=== PATIENT | female | born 1990 | race Hispanic/Latino ===

== ENCOUNTER 2017-10-25 01:08 | Emergency (ER) | payer MEDICAID ==
--- NOTE | 2017-10-25 01:35 | ED PDOC ---
Arrival/HPI - General Time Seen by Provider: 10/25/17 01:10 Historian: Patient, EMS, Police - History of Present Illness Narrative History of Present Illness (Text): 10/25/17 01:35 Suyapa Petit is a 27 year old female, whose past medical history includes IVDA and alcohol abuse, who presents to the Emergency department brought in for alcohol abuse. EMS report patient was found sitting on someone's porch tonight intoxicated. On arrival, patient is agitated, yelling, and cursing at staff. Limited HPI and ROS due to uncooperative patient. Symptom Onset: Gradual Symptom Course: Unchanged Activities at Onset: Light Context: Street Past Medical History - Provider Review Nursing Documentation Reviewed: Yes - Infectious Disease Hx of Infectious Diseases: None - Tetanus Immunization Tetanus Immunization: Up to Date - Past Medical History Past Medical History: No Previous - Cardiac Hx Cardiac Disorders: No - Pulmonary Hx Respiratory Disorders: No - Neurological Hx Neurological Disorder: No - HEENT Hx HEENT Disorder: No - Renal Hx Renal Disorder: No - Endocrine/Metabolic Hx Endocrine Disorders: No - Hematological/Oncological Hx Blood Disorders: No - Integumentary Hx Dermatological Disorder: No - Musculoskeletal/Rheumatological Hx Falls: No - Gastrointestinal Hx Gastrointestinal Disorders: No - Genitourinary/Gynecological Hx Genitourinary Disorders: No - Psychiatric Hx Psychophysiologic Disorder: No Hx Anxiety: No Hx Depression: No Hx Emotional Abuse: No Hx Hallucinations: No Hx Panic Disorder: No Hx Post Traumatic Stress Disorder: No Hx Psychosis: No Hx Physical Abuse: No Hx Schizophrenia: No Hx Sexual Abuse: No Hx Substance Use: Yes - Past Surgical History Past Surgical History: No Previous - Anesthesia Hx Anesthesia: No Hx Anesthesia Reactions: No Hx Malignant Hyperthermia: No - Suicidal Assessment Feels Threatened In Home Enviroment: No Family/Social History - Physician Review Nursing Documentation Reviewed: Yes Family/Social History: Unknown Family HX Smoking Status: Heavy Smoker > 10 Cigarettes Daily Hx Alcohol Use: No Hx Substance Use: Yes Substance used: cocaine, herione Hx Substance Use Treatment: No Allergies/Home Meds Allergies/Adverse Reactions: Allergies No Known Allergies Allergy (Verified 10/25/17 01:39) Home Medications: Home Meds Medication Instructions Recorded Confirmed No Known Home Med 07/13/16 10/25/17 Review of Systems - Review of Systems Systems not reviewed;Unavailable: Uncooperative Physical Exam Vital Signs Reviewed: Yes Vital Signs Temp Pulse Resp BP Pulse Ox 10/25/17 12:05 98.1 F 78 17 110/51 L 98 10/25/17 05:34 82 18 105/42 L 94 L 10/25/17 04:16 75 18 105/41 L 95 10/25/17 03:05 80 18 117/61 100 10/25/17 02:00 85 18 156/98 H 100 Temperature: Afebrile Blood Pressure: Normal Pulse: Regular Respiratory Rate: Normal Appearance: Positive for: Well-Appearing, Non-Toxic, Comfortable Pain Distress: None Mental Status: Positive for: Agitated - Systems Exam Head: Present: Atraumatic, Normocephalic Pupils: Present: PERRL Extroacular Muscles: Present: EOMI Conjunctiva: Present: Normal Mouth: Present: Moist Mucous Membranes Neck: Present: Normal Range of Motion Respiratory/Chest: Present: Clear to Auscultation, Good Air Exchange. No: Respiratory Distress, Accessory Muscle Use Cardiovascular: Present: Regular Rate and Rhythm, Normal S1, S2. No: Murmurs Abdomen: No: Tenderness, Distention, Peritoneal Signs Back: Present: Normal Inspection Upper Extremity: Present: Normal Inspection. No: Cyanosis, Edema Lower Extremity: Present: Normal Inspection. No: Edema Neurological: Present: GCS=15, CN II-XII Intact, Speech Normal Skin: Present: Warm, Dry, Normal Color. No: Rashes Psychiatric: Present: Agitated (Agitated, yelling obscenities at staff) Medical Decision Making ED Course and Treatment: 10/25/17 01:35 Impression: 27 year old female brought in for alcohol intoxication. Plan: -- Labs, alcohol level -- Urinalysis, urine drug screen -- Reassess and disposition Prior Visits: Notes and results from previous visits were reviewed. Progress Notes: Pt on arrival to Emergency department is agitated, screaming, yelling obscenities/cursing at staff. Attempted to verbally de-escalate pt. Will sedate patient's own safety. 10/25/17 05:35 pt sleeping innad s/p sedation. - Lab Interpretations Lab Results: 10/25/17 02:27 10/25/17 02:27 Lab Results 10/25/17 02:27: Alcohol, Quantitative 213 H 10/25/17 02:27: Salicylates < 1 L, Acetaminophen < 10.0 L 10/25/17 02:27: Sodium 145, Potassium 3.9, Chloride 108 H, Carbon Dioxide 22, Anion Gap 19, BUN 9, Creatinine 0.7, Est GFR ( Amer) > 60, Est GFR (Non- Af Amer) > 60, Random Glucose 110, Calcium 9.6, Total Bilirubin < 0.1 L, AST 80 H, ALT 115 H, Alkaline Phosphatase 74, Total Protein 8.6 H, Albumin 4.5, Globulin 4.1, Albumin/Globulin Ratio 1.1 10/25/17 02:27: WBC 10.0 D, RBC 4.50, Hgb 12.6, Hct 37.1, MCV 82.4, MCH 28.0, MCHC 34.0, RDW 13.1, Plt Count 277, MPV 9.9, Gran % 43.6 L, Lymph % (Auto) 53.0 H, [place] % (Auto) 3.2, Eos % (Auto) 0.1 L, Baso % (Auto) 0.1, Gran # 4.36, Lymph # (Auto) 5.3 H, [place] # (Auto) 0.3, Eos # (Auto) 0.0, Baso # (Auto) 0.01 - Medication Orders Current Medication Orders: Discontinued Medications Lorazepam (Ativan) 2 mg IM ONCE ONE PRN Reason: Protocol Stop: 10/25/17 01:38 Last Admin: 10/25/17 01:37 Dose: 2 mg IM Administration Charges Document 10/25/17 01:37 AD (Rec: 10/25/17 01:46 AD [id number]) Injection Site MAR Injection Site Left Deltoid Charges for Administration # of IM Administrations 1 Ziprasidone (Geodon Inj) 20 mg IM STAT STA PRN Reason: Protocol Stop: 10/25/17 01:38 Last Admin: 10/25/17 01:37 Dose: 20 mg IM Administration Charges Document 10/25/17 01:37 AD (Rec: 10/25/17 01:46 AD [id number]) Injection Site MAR Injection Site Right Deltoid Charges for Administration # of IM Administrations 1 - Scribe Statement The provider has reviewed the documentation as recorded by the Cyndi Hu Provider Scribe Attestation: All medical record entries made by the Scribe were at my direction and personally dictated by me. I have reviewed the chart and agree that the record accurately reflects my personal performance of the history, physical exam, medical decision making, and the department course for this patient. I have also personally directed, reviewed, and agree with the discharge instructions and disposition. Disposition/Present on Arrival - Present on Arrival Any Indicators Present on Arrival: No History of DVT/PE: No History of Uncontrolled Diabetes: No Urinary Catheter: No History Surgical Site Infection Following: None - Disposition Have Diagnosis and Disposition been Completed?: Yes Diagnosis: Alcohol intoxication Disposition: HOME/ ROUTINE Disposition Time: 07:00 Condition: IMPROVED Discharge Instructions (ExitCare): Alcohol Abuse and Alcoholism (DC) Additional Instructions: Ms Petit, thank you for letting us take care of you today. Your provider was Dr. Slater. You were treated for Alcohol Intoxication. The emergency medical care you received today was directed at your acute symptoms. If you were prescribed any medication, please fill it and take as directed. It may take several days for your symptoms to resolve. Return to the Emergency Department if your symptoms worsen, do not improve, or if you have any other problems. Please contact your doctor or call one of the physicians/clinics you have been referred to that are listed on the Patient Visit Information form that is included in your discharge packet. Bring any paperwork you were given at discharge with you along with any medications you are taking to your follow up visit. Our treatment cannot replace ongoing medical care by a primary care provider (PCP) outside of the emergency department. Thank you for allowing the [facility] team to be part of your care today. If you had an X-Ray or CT scan: A Radiologist will review the ED reading if any change in treatment is needed we will contact you. If you had a blood, urine, or wound culture: It will take several days for the results, if any change in treatment is needed we will contact you. If you had an STI test: It will take 48 hours for the results. Please call after 1 week if you have not heard back. Referrals: [facility] at [facility] [place] - Follow up with primary Forms: [employer] (Mauritanian), WORK NOTE
[2017-10-25 01:38] VITALS: BMI 25.7
[2017-10-25 02:44] LABS: BASO # 0.01 K/mm3 (0.0-2.0); BASO % 0.1 % (0.0-3.0); EOS % 0.1 % (1.5-5.0); GRAN # 4.36 (1.4-6.5); GRAN % 43.6 % (50.0-68.0); HEMOGLOBIN 12.6 g/dL (12.0-16.0); LYMPH # 5.3 (1.2-3.4); MEAN CELL VOLUME 82.4 fl (80.0-105.0); MEAN PLATELET VOLUME 9.9 fl (7.0-11.0); MONO # 0.3 (0.1-0.6); MONO % 3.2 % (1.0-6.0); RBC 4.5 10^6/uL (3.5-6.1); RED CELL DISTRIBUTION WIDTH 13.1 % (11.5-14.5)
[2017-10-25 02:51] LABS: ACETAMINOPHEN < 10.0 ug/ml (10.0-20.0); SALICYLATE < 1 mg/dL (2.0-20.0)
[2017-10-25 02:52] LABS: ALB/GLOB RATIO 1.1 (1.1-1.8); ALBUMIN 4.5 g/dL (3.0-4.8); ALT/SGPT 115 U/L (7-56); AST/SGOT 80 U/L (14-36); BLOOD UREA NITROGEN 9 mg/dL (7-21); CALCIUM 9.6 mg/dL (8.4-10.5); GFR AFRICAN-AMERICAN > 60; GFR NON-AFRICAN AMERICAN > 60
--- NOTE | 2017-10-25 07:27 | ED PDOC ---
Physical Exam Vital Signs Reviewed: Yes Vital Signs Pulse Resp BP Pulse Ox 10/25/17 05:34 82 18 105/42 L 94 L 10/25/17 04:16 75 18 105/41 L 95 10/25/17 03:05 80 18 117/61 100 10/25/17 02:00 85 18 156/98 H 100 Temperature: Afebrile Blood Pressure: Hypertensive Pulse: Regular Respiratory Rate: Normal Appearance: Positive for: Well-Appearing Pain Distress: None Mental Status: Positive for: Alert and Oriented X 3 - Systems Exam Neurological: Present: GCS=15, CN II-XII Intact, Speech Normal (no slurred speech). No: Other (no ataxia) Psychiatric: Present: Alert, Oriented x 3, Normal Insight, Normal Concentration. No: Suicidal Ideation, Homicidal Ideation Medical Decision Making ED Course and Treatment: 10/25/17 07:13 Patient transferred to mi by Dr. Low. Patient awaiting follow-up and pending sobriety. Patient to be reevaluated and dispositioned. 10/25/17 11:39 Patient has reached sobriety. Upon re-examination, patient is alert and oriented x 3, denies any SI/HI, has no slurred speech, no ataxia, denies any drug use. Patient will follow-up with PMD. - Lab Interpretations Lab Results: 10/25/17 02:27 10/25/17 02:27 Lab Results 10/25/17 02:27: Alcohol, Quantitative 213 H 10/25/17 02:27: Salicylates < 1 L, Acetaminophen < 10.0 L 10/25/17 02:27: Sodium 145, Potassium 3.9, Chloride 108 H, Carbon Dioxide 22, Anion Gap 19, BUN 9, Creatinine 0.7, Est GFR ( Amer) > 60, Est GFR (Non- Af Amer) > 60, Random Glucose 110, Calcium 9.6, Total Bilirubin < 0.1 L, AST 80 H, ALT 115 H, Alkaline Phosphatase 74, Total Protein 8.6 H, Albumin 4.5, Globulin 4.1, Albumin/Globulin Ratio 1.1 10/25/17 02:27: WBC 10.0 D, RBC 4.50, Hgb 12.6, Hct 37.1, MCV 82.4, MCH 28.0, MCHC 34.0, RDW 13.1, Plt Count 277, MPV 9.9, Gran % 43.6 L, Lymph % (Auto) 53.0 H, [place] % (Auto) 3.2, Eos % (Auto) 0.1 L, Baso % (Auto) 0.1, Gran # 4.36, Lymph # (Auto) 5.3 H, [place] # (Auto) 0.3, Eos # (Auto) 0.0, Baso # (Auto) 0.01 - Medication Orders Current Medication Orders: Discontinued Medications Lorazepam (Ativan) 2 mg IM ONCE ONE PRN Reason: Protocol Stop: 10/25/17 01:38 Last Admin: 10/25/17 01:37 Dose: 2 mg IM Administration Charges Document 10/25/17 01:37 AD (Rec: 10/25/17 01:46 AD [id number]) Injection Site MAR Injection Site Left Deltoid Charges for Administration # of IM Administrations 1 Ziprasidone (Geodon Inj) 20 mg IM STAT STA PRN Reason: Protocol Stop: 10/25/17 01:38 Last Admin: 10/25/17 01:37 Dose: 20 mg IM Administration Charges Document 10/25/17 01:37 AD (Rec: 10/25/17 01:46 AD [id number]) Injection Site MAR Injection Site Right Deltoid Charges for Administration # of IM Administrations 1 - Scribe Statement The provider has reviewed the documentation as recorded by the Cyndi Pires Provider Scribe Attestation: All medical record entries made by the Scribonelia were at my direction and personally dictated by me. I have reviewed the chart and agree that the record accurately reflects my personal performance of the history, physical exam, medical decision making, and the department course for this patient. I have also personally directed, reviewed, and agree with the discharge instructions and disposition. Disposition/Present on Arrival - Present on Arrival Any Indicators Present on Arrival: No History of DVT/PE: No History of Uncontrolled Diabetes: No Urinary Catheter: No History of Decub. Ulcer: No History Surgical Site Infection Following: None - Disposition Have Diagnosis and Disposition been Completed?: Yes Diagnosis: Alcohol intoxication Disposition: HOME/ ROUTINE Disposition Time: 12:08 Patient Plan: Discharge Condition: IMPROVED Discharge Instructions (ExitCare): Alcohol Abuse and Alcoholism (DC) Additional Instructions: Ms Petit, thank you for letting us take care of you today. Your provider was Dr. Slater. You were treated for Alcohol Intoxication. The emergency medical care you received today was directed at your acute symptoms. If you were prescribed any medication, please fill it and take as directed. It may take several days for your symptoms to resolve. Return to the Emergency Department if your symptoms worsen, do not improve, or if you have any other problems. Please contact your doctor or call one of the physicians/clinics you have been referred to that are listed on the Patient Visit Information form that is included in your discharge packet. Bring any paperwork you were given at discharge with you along with any medications you are taking to your follow up visit. Our treatment cannot replace ongoing medical care by a primary care provider (PCP) outside of the emergency department. Thank you for allowing the [facility] team to be part of your care today. If you had an X-Ray or CT scan: A Radiologist will review the ED reading if any change in treatment is needed we will contact you. If you had a blood, urine, or wound culture: It will take several days for the results, if any change in treatment is needed we will contact you. If you had an STI test: It will take 48 hours for the results. Please call after 1 week if you have not heard back. Referrals: [facility] [place] [facility] [place] - Follow up with primary Forms: [employer] (Jordanian), WORK NOTE
[2017-10-25 12:06] VITALS: BP 110/51; PULSE 78; RESP 17; TEMP 98.1; O2SAT 98
== END 2017-10-25 12:08 | disposition home or self-care (01) ==
LOC: ED 01:08
DX: F10.129 Alcohol abuse with intoxication, unspecified (principal); Y90.7 Blood alcohol level of 200-239 mg/100 ml
CPT/HCPCS: 80053; 80320; 80329; 85025; 96372; 99284; J2060; J3486